=== PATIENT | female | born 1975 | race Caucasian/White ===

== ENCOUNTER 2021-07-22 08:22 | Day surgery (SDC) | payer OTHER ==
--- NOTE | 2021-07-21 11:51 | HP ---
DATE OF SURGERY: 07/22/2021 HISTORY OF PRESENT ILLNESS: The patient is a 45-year-old female who presents for screening colonoscopy. The patient has no GI signs, symptoms or complaints at this time. The patient reports a history of a female cancer at age 40. The patient does have a family history of colon cancer as well. PAST MEDICAL HISTORY: Rm thyroiditis. Tachycardia. Diabetes. PAST SURGICAL HISTORY: None reported. ALLERGIES: NKDA. MEDICATIONS: Toprol, Metformin, Synthroid, Claritin, multivitamin, B-supplement, Singulair. FAMILY HISTORY: Colon cancer. Hemochromatosis. SOCIAL HISTORY: Social alcohol. REVIEW OF SYSTEMS: CONSTITUTIONAL: Denies fever or chills. CHEST: Denies shortness of breath. CVS: Denies chest pain. ABDOMEN: Denies abdominal pain, nausea, vomiting, diarrhea, constipation or rectal bleeding. PHYSICAL EXAMINATION: GENERAL: No acute distress. CHEST: Nonlabored. No shortness of breath. CVS: Regular rate and rhythm. ABDOMEN: Soft, nontender. IMPRESSION: Screening and family history of colon cancer. PLAN: Colonoscopy with Dr. Stephan Han. As dictated by Pam Coronado NP.
[2021-07-22] MEDS ORDERED: Lactated Ringers 1,000 ML IV ONE ×2 (09:00→11:47)
[2021-07-22] MEDS ORDERED: Lactated Ringers 1,000 ML IV SCH (09:00)
[2021-07-22] MEDS ORDERED: Xylocaine-Mpf 2% 5 Ml Vial ONE (10:42)
[2021-07-22] MEDS ORDERED: DIPRIVAN 200 MG/20 ML IV ONE ×2 (10:42→10:52)
[2021-07-22 11:35] VITALS: O2SAT 100
[2021-07-22 12:16] VITALS: BP 134/72; PULSE 68
--- NOTE | 2021-07-22 14:39 | OP ---
SURGERY DATE/TIME: 07/22/2021 1044 PREOPERATIVE DIAGNOSES: A 45-year-old requiring screenin) She is age 45. 2) She has family history of colon cancer. 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 POSTOPERATIVE DIAGNOSES: 1) Very minimal to mild scattered diverticula numbering just two to three. 2) Mild internal hemorrhoids. 3) Mucosa no polyps today at all. 4) Prep score was excellent. PROCEDURE: Colonoscopy complete to cecum. SURGEON: Stephan Han M.D. ANESTHESIA: MAC. COMPLICATIONS: None. CONDITION: Stable. INDICATION: A patient has family history. She is also 45. DESCRIPTION OF PROCEDURE: She is taken to endoscopy. Left lateral decubitus position. Anal digital examination satisfactory. Scope introduced. The scope advanced to the cecum. Slightly redundant colon especially transverse colon sagged down into the pelvis but then it came back. Hepatic flexure manipulated. Descending colon manipulated down into the base of the cecum. Appendiceal orifice was normal. Ileocecal valve was normal. Base of the cecum normal. Ascending, hepatic, transverse, splenic, descending, sigmoid, rectum. Mild internal hemorrhoids. She had just a few scattered diverticula I think three. IMPRESSION: Normal mucosa. PLAN: Follow up in five years because of her family history.
== END 2021-07-22 12:10 | disposition home or self-care (01) ==
LOC: SDC 08:22
PROVIDERS: ATTEND Surgery
DX: Z12.11 Encounter for screening for malignant neoplasm of colon (principal); Z80.0 Family history of malignant neoplasm of digestive organs; Z85.40 Personal history of malignant neoplasm of unspecified female genital organ; K57.30 Diverticulosis of large intestine without perforation or abscess without bleeding; K64.8 Other hemorrhoids
CPT/HCPCS: 84703; J2704

== ENCOUNTER 2023-10-30 12:18 | Emergency (ER) | payer OTHER ==
[2023-10-30 12:29] VITALS: TEMP 98.7
--- NOTE | 2023-10-30 12:34 | ERPHSYRPT ---
- History of Present Illness Time Seen by Provider: 10/30/23 12:33 Source: patient Exam Limitations: no limitations Patient Subjective Stated Complaint: PT states "I was assisting putting a picc line in and I cut my finger with a dirty scalpel" Triage Nursing Assessment: Pt presented alert and oriented X 3, skin pwd. PT ambulates with an upright steady gait, able to speak in clear full sentences. Pt resting on the bed. Physician History: This is a 47-year-old white female patient who presents to the emergency depart ment postexposure of a dirty scalpel laceration to left index finger while assisting placement of a PICC line. The patient has a known history of hepatitis C but has been completely treated for this medical issue. Patient is in the emergency department to undergo postexposure prophylaxis. Patient has a history of asthma, diabetes, hypertension, hypothyroidism and gastroesophageal reflux disease. Patient does not know when her last tetanus vaccination was. She thinks that she has been vaccinated for hepatitis B. Timing/Duration: today Severity: mild Modifying Factors: Improves With: nothing Associated Symptoms: denies symptoms Allergies/Adverse Reactions: No Known Drug Allergies Allergy (Verified 07/22/21 08:56) Home Medications: Levothyroxine Sodium 150 Mcg [Synthroid 150 Mcg] 150 mcg PO DAILY 07/21/21 [History] Loratadine 10 mg [Claritin 10 mg] 10 mg PO DAILY 07/21/21 [History] Montelukast Sodium 10 mg [Singulair 10 MG] 10 mg PO DAILY 07/21/21 [History] Multivitamin [Multi-Vitamin Daily] 1 each PO DAILY 07/21/21 [History] Vitamin B Complex [B Complex] 1 each PO DAILY 07/21/21 [History] Metoprolol Succinate 50 mg [Toprol Xl 50 MG] 50 mg PO DAILY 10/30/23 [History] Pioglitazone 30 mg [Actos 30 MG] 30 mg PO DAILY 10/30/23 [History] Hx Tetanus, Diphtheria Vaccination/Date Given: No Hx Influenza Vaccination/Date Given: Yes Hx Pneumococcal Vaccination/Date Given: No Immunizations Up to Date: No Travel Risk - International Travel Have you traveled outside of the country in past 3 weeks: No - Emerging Infectious Disease Are you exhibiting symptoms associated with any current EIDs: No - Review of Systems Constitutional: No Symptoms Eyes: No Symptoms Ears, Nose, & Throat: No Symptoms Respiratory: No Symptoms Cardiac: No Symptoms Abdominal/Gastrointestinal: No Symptoms Genitourinary Symptoms: No Symptoms Musculoskeletal: No Symptoms Skin: Other (Accidental scalp laceration to finger) Neurological: No Symptoms Psychological: No Symptoms Endocrine: No Symptoms Hematologic/Lymphatic: No Symptoms Immunological/Allergic: No Symptoms All Other Systems: Reviewed and Negative - Past Medical History Pertinent Past Medical History: Yes Neurological History: No Pertinent History ENT History: No Pertinent History Cardiac History: Other Respiratory History: No Pertinent History Endocrine Medical History: Hypothyroidism Musculoskeletal History: No Pertinent History GI Medical History: No Pertinent History History: No Pertinent History Psycho-Social History: No Pertinent History Female Reproductive Disorders: No Pertinent History Other Medical History: tachycardia - Past Surgical History Past Surgical History: No Neuro Surgical History: No Pertinent History Cardiac: No Pertinent History Respiratory: No Pertinent History Gastrointestinal: No Pertinent History Genitourinary: No Pertinent History Musculoskeletal: No Pertinent History Female Surgical History: No Pertinent History - Female History Hx Last Menstrual Period: 10/25/2023 Hx Now: No - Social History Smoking Status: Never smoker Exposure to second hand smoke: No Drug Use: none - Nursing Vital Signs Nursing Vital Signs: Initial Vital Signs Temperature 98.7 F 10/30/23 12:25 Pulse Rate 80 10/30/23 12:25 Respiratory Rate 20 10/30/23 12:25 Blood Pressure 165/87 10/30/23 12:25 O2 Sat by Pulse Oximetry 98 10/30/23 12:25 Pain Scale Pain Intensity 0 - Physical Exam General Appearance: no apparent distress, alert, anxiety Eye Exam: PERRL/EOMI, eyes nml inspection Ears, Nose, Throat Exam: normal ENT inspection, moist mucous membranes Neck Exam: normal inspection, non-tender, supple, full range of motion Respiratory Exam: airway intact, No chest tenderness, No respiratory distress Gastrointestinal/Abdomen Exam: No tenderness Pelvic Exam: not done Rectal Exam: not done Back Exam: normal inspection, normal range of motion, No CVA tenderness, No vertebral tenderness Extremity Exam: normal range of motion, pelvis stable, tenderness (In the area of superficial laceration left index finger just proximal to the nailbed) Neurologic Exam: alert, oriented x 3, cooperative, 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, normal mood/affect, nml cerebellar function, nml station & gait, sensation nml Skin Exam: laceration (Left index finger proximal to nailbed) Lymphatic Exam: No adenopathy SpO2 Interpretation: normal SpO2: 98 O2 Delivery: Room Air - Course Nursing assessment & vital signs reviewed: Yes Ordered Tests: Active Orders 24 hr Category Date Time Status Wound Care STAT Care 10/30/23 12:34 Active Wound Care STAT Care 10/30/23 13:19 Active CBC W DIFF Stat Lab 10/30/23 13:36 Completed CMP Stat Lab 10/30/23 13:36 Completed Medication Summary Generic Name Dose Route Start Last Admin Trade Name Freq PRN Reason Stop Dose Admin Raltegravir 400 mg 10/30/23 13:30 10/30/23 13:40 Raltegravir Potassium 400 Mg Tablet PO 11/29/23 13:29 400 mg STAT [place] Administration Discontinued Medications Generic Name Dose Route Start Last Admin Trade Name Freq PRN Reason Stop Dose Admin Diphtheria/Tetanus/Acell Pertussis 0.5 ml 10/30/23 13:35 10/30/23 13:42 Tdap --Diph,Pertuss(Acell),Tet Vac/Pf 0.5 Ml Vial IM 10/30/23 13:36 0.5 ml .ONCE ONE Administration Diphtheria/Tetanus/Acell Pertussis Confirm 10/30/23 13:36 Tdap --Diph,Pertuss(Acell),Tet Vac/Pf 0.5 Ml Vial Administered 10/30/23 13:37 Dose 0.5 ml IM .STK-MED ONE Emtricitabine/Tenofovir 1 tablet 10/30/23 13:19 10/30/23 13:39 Emtricitabine/Tenofovir 1 Tablet PO 10/30/23 13:20 1 tablet STAT STA Administration Emtricitabine/Tenofovir Confirm 10/30/23 13:34 Emtricitabine/Tenofovir 1 Tablet Administered 10/30/23 13:35 Dose 1 tablet .ROUTE .STK-MED ONE Lab/Rad Data: Laboratory Result Diagrams 10/30/23 13:36 10/30/23 13:36 Laboratory Results 10/30/23 10/30/23 Range/Units 13:36 13:36 WBC 8.1 (4.0-10.5) x10^3/uL RBC 4.26 (4.1-5.4) x10^6/uL Hgb 13.0 (12.0-16.0) g/dL Hct 39.4 (35-47) % MCV 92.5 (78-100) fL MCH 30.5 (26-32) pg MCHC 33.0 (32-36) g/dL RDW 13.0 (11.5-14.0) % Plt Count 288 (150-450) x10^3/uL MPV 9.2 (7.5-11.0) fL Gran % 67.7 H (36.0-66.0) % Immature Gran % (Auto) 0.2 (0.00-0.4) % Nucleat RBC Rel Count 0.0 (0.00-0.1) % Eos # (Auto) 0.18 (0-0.5) x10^3/uL Immature Gran # (Auto) 0.02 (0.00-0.03) x10^3u/L Absolute Lymphs (auto) 2.04 (1.0-4.6) x10^3/uL Absolute Monos (auto) 0.35 (0.0-1.3) x10^3/uL Absolute Nucleated RBC 0.00 (0.00-0.01) x10^3u/L Lymphocytes % 25.2 (24.0-44.0) % Monocytes % 4.3 (0.0-12.0) % Eosinophils % 2.2 (0.00-5.0) % Basophils % 0.4 (0.0-0.4) % Absolute Granulocytes 5.46 (1.4-6.9) x10^3/uL Basophils # 0.03 (0-0.4) x10^3/uL Sodium 140 (135-145) mmol/L Potassium 4.2 (3.5-5.1) mmol/L Chloride 107 (98-107) mmol/L Carbon Dioxide 26 (22-30) mmol/L Anion Gap 11.5 (5-15) MEQ/L BUN 14 (7-17) mg/dL Creatinine 0.62 (0.52-1.04) mg/dL Estimated GFR 110.5 ML/MIN Glucose 99 (74-106) mg/dL Calcium 9.5 (8.4-10.2) mg/dL Total Bilirubin 0.60 (0.2-1.3) mg/dL AST 31 (14-36) U/L ALT 19 (0-35) U/L Alkaline Phosphatase 56 (38-126) U/L Serum Total Protein 7.4 (6.3-8.2) g/dL Albumin 4.3 (3.5-5.0) g/dL - Progress Progress: re-examined Progress Note: 10/30/23 13:31 My medical decision making and assignment of low to moderate complexity to this patient's medical issue is based on review of the patient's past medical history, review the patient medication list, review the patient drug allergy list, history present illness and physical findings on examination. The workup in this patient includes the PEP prophylaxis regimen. Patient does agree to the HIV initial stat dose and therefore CBC and CMP will also be ordered. Counseled pt/family regarding: lab results, diagnosis, need for follow-up Medical Desision Making - Diagnostic Testing Diagnostic test were ordered, analyzed, and reviewed by me: Yes - Risk of complications Low Risk: Low risk of morbidity from additional dx testing or treatment - Departure Departure Disposition: Home Clinical Impression: Laceration Condition: Stable Critical Care Time: No Referrals: KARIN BARRIENTOS MD [ACTIVE STAFF] - Follow up/PCP as directed Additional Instructions: Continue your medications as prescribed. Call your primary care provider today to make arranges for follow-up appointment to determine the lab results of the source of the postexposure incident. Also find out from your primary care provider if you have been vaccinated for hepatitis B.
[2023-10-30 13:33] VITALS: BP 168/72; PULSE 88
[2023-10-30] MEDS ORDERED: TRUVADA 200 MG-300 MG TABLET ONE (13:34)
[2023-10-30] MEDS ORDERED: ISENTRESS ONE (13:34)
[2023-10-30] MEDS ORDERED: Adacel Vial IM ONE (13:36)
[2023-10-30 13:38] LABS: Absolute Neutrophil Ct (ANC) 5.46 x10^3/uL (1.4-6.9); BASOPHIL % 0.4 % (0.0-0.4); Basophil (Absolute #) 0.03 x10^3/uL (0-0.4); Eosinophil % 2.2 % (0.00-5.0); Eosinophil (Absolute #) 0.18 x10^3/uL (0-0.5); Hematocrit 39.4 % (35-47); IMMATURE GRAN # 0.02 x10^3u/L (0.00-0.03); IMMATURE GRAN % 0.2 % (0.00-0.4); Lymphocyte (Absolute #) 2.04 x10^3/uL (1.0-4.6); Lymphocytes % 25.2 % (24.0-44.0); Mean Cell Volume 92.5 fL (78-100); Mean Corpuscular Hemoglobin 30.5 pg (26-32); Mean Platelet Volume 9.2 fL (7.5-11.0); Monocyte (Absolute #) 0.35 x10^3/uL (0.0-1.3); Monocytes % 4.3 % (0.0-12.0); Neutrophil % 67.7 % (36.0-66.0); Platelet Count 288 x10^3/uL (150-450); Red Blood Count 4.26 x10^6/uL (4.1-5.4); White Blood Count 8.1 x10^3/uL (4.0-10.5)
[2023-10-30] MEDS: TRUVADA 200 MG-300 MG TABLET PO STA (13:39)
[2023-10-30] MEDS: ISENTRESS PO SCH (13:40)
[2023-10-30] MEDS: Adacel Vial IM ONE (13:42)
[2023-10-30 13:49] LABS: ALBUMIN 4.3 g/dL (3.5-5.0); ANION GAP 11.5 MEQ/L (5-15); BILIRUBIN,TOTAL 0.6 mg/dL (0.2-1.3); Calcium 9.5 mg/dL (8.4-10.2); Creatinine 1 0.62 mg/dL (0.52-1.04); EST GLOMERULAR FILTRATION RATE 110.5 ML/MIN; Potassium 4.2 mmol/L (3.5-5.1); Total Protein 7.4 g/dL (6.3-8.2)
[2023-10-30 14:16] VITALS: RESP 16; O2SAT 98
[2023-10-31 08:23] LABS: HBsAg Screen Negative (Negative); HIV Screen 4th Generation wRfx Non Reactive (Non Reactive); Hep B Surface Ab, Quant 69.9 mIU/mL (Immunity>9.9); Hep C Virus Ab Non Reactive (Non Reactive)
== END 2023-10-30 14:25 | disposition home or self-care (01) ==
LOC: ER - EH 12:18
DX: S61.211A Laceration without foreign body of left index finger without damage to nail, initial encounter (principal); W26.0XXA Contact with knife, initial encounter; Y92.238 Other place in hospital as the place of occurrence of the external cause; Y99.0 Civilian activity done for income or pay; E11.9 Type 2 diabetes mellitus without complications; I10 Essential (primary) hypertension; Z79.84 Long term (current) use of oral hypoglycemic drugs; Z79.899 Other long term (current) drug therapy
CPT/HCPCS: 36415; 80053; 85025; 86317; 87340; 87389; 99283; G0472; 86803; 90715; A9270-GY